=== PATIENT | female | born 1975 | race Caucasian/White ===

== ENCOUNTER 2019-10-30 13:35 | Emergency (ER) | payer OTHER, SELFPAY ==
--- NOTE | 2019-10-30 13:58 | ED.URI ---
HPI - URI/Sore Throat General Chief Complaint: Upper Respiratory Infection Stated Complaint: Cold/Congestion Time Seen by Provider: 10/30/19 14:10 Source: patient and RN notes reviewed Mode of arrival: ambulatory Limitations: no limitations History of Present Illness HPI Narrative: 44-year-old male presents with concern for 9-day history of sinus congestion, sinus pressure, postnasal drainage, cough. Reports taking Tylenol sinus with no relief. MD elicited complaint: nasal congestion Related Data Allergies Allergy/AdvReac Type Severity Reaction Status Date / Time aspirin AdvReac Nausea and Verified 10/30/19 14:24 Vomiting promethazine [From Phenergan] AdvReac Seizure Verified 10/30/19 14:23 Review of Systems Review of Systems: Narrative: CONSTITUTIONAL: Reports malaise. Denies chills, sweats, or fever. EYES: Denies visual changes, redness, or discharge. ENT: Reports rhinorrhea, congestion, sinus pain, otalgia and sore throat. CARDIOVASCULAR: Denies chest pain, palpitations, or edema. RESPIRATORY: Reports cough. Denies dyspnea. GASTROINTESTINAL: Denies abdominal pain, nausea, vomiting, diarrhea SKIN: Denies rash or itching. MUSCULOSKELETAL: Denies myalgia. NEUROLOGIC: Denies headache. All systems reviewed & are unremarkable except as noted in HPI and below PMFSH Comments At time of signature, agree with nursing past medical, surgical, social and family history. There is no relevant family history pertinent to the presenting complaint Exam Narrative: Exam Narrative: GENERAL: Well-appearing, well-nourished, and in no acute distress. HEAD: Normocephalic EYES: PERRLA, conjunctivae clear ENT: Nares clear, turbinates edematous and erythematous, sinus tenderness. Mucous membranes moist. TM pearly de la rosa with dull light reflex bilaterally; no tragal tenderness. Oropharynx erythematous without lesions. Tonsils enlarged and without exudate, no drooling, no hoarseness, no trismus. NECK: Supple. No lymphadenopathy CHEST: Clear to auscultation, breath sounds equal. No wheezing, rhonchi, rales, or stridor. No respiratory distress, speaks in full sentences. HEART: Regular rate and rhythm. No murmur heard. Normal peripheral pulses. SKIN: Warm, dry, no rash. NEURO: Alert and oriented x3. PSYCH: Normal mood and affect Course Course Emergency Course: Patient is aware of diagnosis, understands and agrees to treatment plan. Anticipatory guidance given. Patient agrees to follow-up as directed and is aware of reasons to seek care at the emergency department. Portions of this record may have been created with voice recognition software Vital Signs Vital signs: Vital Signs Temperature 98.4 F 10/30/19 14:05 Pulse Rate 83 10/30/19 14:05 Respiratory Rate 20 10/30/19 14:05 Blood Pressure 141/89 H 10/30/19 14:05 Pulse Oximetry 98 10/30/19 14:05 Temperature 98.4 F 10/30/19 14:05 Pulse Rate 83 10/30/19 14:05 Respiratory Rate 20 10/30/19 14:05 Blood Pressure 141/89 H 10/30/19 14:05 Pulse Oximetry 98 10/30/19 14:05 Reviewed. MDM - URI/Sore Throat MDM Narrative Medical decision making narrative: Differential diagnosis considered: Strep pharyngitis, allergic rhinitis, upper respiratory tract infection, sinusitis, rhinosinusitis, nasopharyngitis. viral pharyngitis, otitis media, otitis externa, pneumonia, bronchitis, viral cough syndrome, viral syndrome, and influenza. Exam findings show no acute concerns or changes; patient is non-toxic appearing and is in no distress. Patient is appropriate for outpatient treatment and follow-up. Critical Care Time Critical Care Time Critical Care Time: No Discharge Plan Discharge Clinical Impression: Sinobronchitis Patient Disposition: Home, Self-Care Condition: Stable Instructions: Antibiotic Form, Sinusitis (ED) Additional Instructions: Symptomatic treatment of a sinus infection aims to relieve symptoms. These treatments do not shorten the duration of illne
[2019-10-30 14:05] VITALS: BP 141/89; PULSE 83; RESP 20; TEMP 36.9; O2SAT 98
== END 2019-10-30 14:35 | disposition home or self-care (01) ==
PROVIDERS: Emergency Provider Nurse Practitioner
DX: J32.9 Chronic sinusitis, unspecified (principal); J40 Bronchitis, not specified as acute or chronic
CPT/HCPCS: 99203; G0463

== ENCOUNTER 2020-07-14 16:57 | Emergency (ER) | payer OTHER, SELFPAY ==
[2020-07-14 17:10] VITALS: BP 116/77; PULSE 104; RESP 16; TEMP 36.6; O2SAT 98
--- NOTE | 2020-07-14 17:11 | ED.GENADULT ---
HPI - General Adult General Chief complaint: Extremity Injury, Upper Stated complaint: Pulled muscle shoulder/neck Time Seen by Provider: 07/14/20 17:11 Source: patient Mode of arrival: ambulatory Limitations: no limitations History of Present Illness HPI narrative: 45-year-old female patient presents to the [facility] with complaints of right shoulder and right-sided lateral neck pain. Patient states she has had this pain since yesterday. Denies any specific injury but states that she thinks it started when she was putting away some groceries. Patient states that because of her medical history she does get pulled muscles quite often. Patient states she is on Flexeril chronically. Patient states she has tried taking Tylenol and ibuprofen for the pain along with her Flexeril which has not helped with the pain. Patient states she has tried ice as well as heat and continues to have pain to the right shoulder and right neck area. Related Data Home Medications Medication Instructions Recorded Confirmed buspirone 5 mg PO BID 10/30/19 07/14/20 escitalopram oxalate [Lexapro] 20 mg PO DAILY 10/30/19 07/14/20 hydroxyzine HCl 50 mg PO BID 10/30/19 07/14/20 cyclobenzaprine 10 mg PO TID 07/14/20 07/14/20 famotidine 20 mg PO BID 07/14/20 07/14/20 losartan 50 mg PO DAILY 07/14/20 07/14/20 propranolol 20 mg PO Q12H 07/14/20 07/14/20 Allergies Allergy/AdvReac Type Severity Reaction Status Date / Time aspirin AdvReac Nausea and Verified 07/14/20 17:25 Vomiting promethazine [From Phenergan] AdvReac Seizure Verified 07/14/20 17:25 Review of Systems Review of Systems: Narrative: CONSTITUTIONAL: Denies fever, chills, or sweats. EYES: Denies visual changes, redness, or discharge. ENT: Denies rhinorrhea, congestion, sore throat, or otalgia. CARDIOVASCULAR: Denies chest pain, palpitations, or edema. RESPIRATORY: Denies cough or dyspnea. GASTROINTESTINAL: Denies abdominal pain, nausea, vomiting, or diarrhea. GENITOURINARY: Denies dysuria or hematuria. SKIN: Denies rash or itching. MUSCULOSKELETAL: Denies back pain, joint pain, or myalgia. Positive right neck and right shoulder pain NEUROLOGIC: Denies headache, numbness, or weakness. PSYCHIATRIC: Denies anxiety or depression. [facility] Past Medical History Medical History (Updated 07/14/20 @ 17:33 by WARD Nguyen) GERD (gastroesophageal reflux disease) Loeys-Belle syndrome Migraine Surgical History Surgical History (Updated 07/14/20 @ 17:25 by WARD Nguyen) H/O brain surgery Comments At the time of my signature I agree with nursing past medical history, surgical, social, and family history. There is no relevant family history pertinent to the presenting complaint. Exam Narrative: Exam Narrative: GENERAL: Well-appearing, well-nourished, and in no acute distress. HEAD: Normocephalic, atraumatic. EYES: PERRLA and EOMI. ENT: Nares clear, no rhinorrhea or epistaxis. Mucous membranes moist. NECK: Supple, no lymphadenopathy. No surface trauma, no soft tissue or muscle tenderness or spasm noted. Trachea midline. No subq emphysema or crepitus. No kathy tenderness, step-offs or deformity to firm Palpation at posterior midline. FROM without limitation or pain, normal flexion, extension,Lateral bending, rotation, and axial load. CHEST: Clear to auscultation. No respiratory distress. HEART: Regular rate and rhythm. No murmur heard. Normal peripheral pulses. ABDOMEN: Soft, nontender, nondistended, normal active bowel sounds. EXTREMITIES: The R shoulder is without obvious asymmetry or deformity when compared to the L shoulder. No surface trauma, ecchymosis, crepitus. No bony deformity or prominence of the humeral head No erythema, warmth, swelling. no tenderness to palpation to clavicle, A to C joint, acromion, scapula or humeral head. No tenderness to palpation of the bicipital groove or soft tissues. No tenderness to palpation of the muscles of the sterncleidomastoid, pectorals, isabell
[2020-07-14 17:30] VITALS: BP 116/77; PULSE 104; RESP 16; TEMP 36.6; O2SAT 98
== END 2020-07-14 17:40 | disposition home or self-care (01) ==
PROVIDERS: Emergency Provider Nurse Practitioner Family; PCP Nurse Practitioner Family
DX: M62.830 Muscle spasm of back (principal); G24.3 Spasmodic torticollis; K21.9 Gastro-esophageal reflux disease without esophagitis; Q87.89 Other specified congenital malformation syndromes, not elsewhere classified; F41.9 Anxiety disorder, unspecified; F32.9 Major depressive disorder, single episode, unspecified
CPT/HCPCS: 99213; G0463